=== PATIENT | male | born 1970 | race Hispanic/Latino ===

== ENCOUNTER 2022-08-12 10:24 | Emergency (ER) | payer MEDICAID ==
[~2022-08-12] VITALS: Ht 167.6 cm; Wt 86.2 kg
[2022-08-12 11:10] VITALS: BP 134/84
[2022-08-12] MEDS ORDERED: IBUPROFEN 600 MG TABLET PO ONE (11:30)
[2022-08-12] MEDS ORDERED: IBUP-2070 PO (11:39)
[2022-08-12] MEDS ORDERED: MUPI22OI2 TP (11:39)
== END 2022-08-12 12:07 | disposition home or self-care (01) ==
LOC: EDH 10:24
DX: L03.011 Cellulitis of right finger (principal)
CPT/HCPCS: 10160

== ENCOUNTER 2023-09-27 19:13 | Emergency (ER) | payer MEDICAID ==
[~2023-09-27] VITALS: Ht 167.6 cm; Wt 89.4 kg
[~2023-09-27 19:13] MED LIST changes: -BENZ-39 PO; -IBUP-2077 PO
[2023-09-27] MEDS ORDERED: 0.9%NACL 1000ML 1,000 ML IV ONE (19:30)
[2023-09-27] MEDS: ACETAMINOPHEN 500 MG TABLET PO ONE (19:30)
[2023-09-27 19:34] VITALS: BP 123/79; PULSE 108; RESP 20; O2SAT 97
[2023-09-27] MEDS ORDERED: IBUP-2077 PO (19:35)
[2023-09-27] MEDS ORDERED: BENZ-39 PO (19:35)
== END 2023-09-27 19:53 | disposition home or self-care (01) ==
LOC: EDH 19:13
DX: U07.1 COVID-19 (principal); R50.9 Fever, unspecified; R05.9 Cough, unspecified

== ENCOUNTER → 2023-09-27 | Emergency (ER) | payer MEDICAID ==
[~2023-09-27] VITALS: Ht 167.6 cm; Wt 86.6 kg
[~2023-09-27] MED LIST: BENZ-39 PO; CEPH500B PO; IBUP-2070 PO; IBUP-2077 PO; MUPI22OI2 TP
[2023-09-27 13:55] VITALS: BP 105/57; PULSE 93; RESP 20
[2023-09-27 14:51] LABS: RAPID GROUP A STREP negative (NEGATIVE)
[2023-09-27 14:59] LABS: SARS-CoV-2, RNA, NAAT POSITIVE SARS CoV-2 (NEGATIVE)
[2023-09-27 15:02] LABS: INFLUENZA TYPE A Negative For Type A (NEGATIVE); INFLUENZA TYPE B Negative For Type B (NEGATIVE)
== END ==
LOC: EDH 13:50
DX: U07.1 COVID-19 (principal); R50.9 Fever, unspecified; Z53.21 Procedure and treatment not carried out due to patient leaving prior to being seen by health care provider
CPT/HCPCS: 87635; 87804; 87880; 99281

== ENCOUNTER 2024-09-07 16:35 | Emergency (ER) | payer MEDICAID ==
[~2024-09-07] VITALS: Ht 167.6 cm; Wt 86.2 kg
[~2024-09-07 16:35] MED LIST changes: +BENZ-39 PO; +IBUP-2077 PO
--- NOTE | 2024-09-07 16:54 | ERN ---
ED Note History of Present Illness Stated Complaint: NAUSEA, VOMITING , DIARRHEA Chief Complaint: Nausea,Vomiting,Diarrhea Time Seen by MD: 16:41 Dictation: PATIENT IS A 53-YEAR-OLD MALE COMING IN VIA EMS WITH COMPLAINTS OF HAVING A PRODUCTIVE COUGH WITH CUSTOMER SUPPORT COORDINATOR PHLEGM FOR FIVE DAYS, NAUSEA VOMITING WITH DIARRHEA AND LOW-GRADE FEVER. HE SAID HE HAS NOT BEEN TO SEE HIS PRIMARY CARE DOCTOR HOWEVER HE HAD A APPOINTMENT WITH HIS DOCTOR FOR TOMORROW BUT DECIDED TO COME TO [facility] INSTEAD TO BE CHECKED OUT. Allergies: Coded Allergies: No Known Drug Allergies (Unverified Allergy, Unknown, 11/14/22) Home Meds Active Scripts Ibuprofen (Ibuprofen 800 mg Tab) 800 Mg Tab, 800 MG PO Q8H PRN for fever or pain, #30 TAB 0 Refills Prov:NANCY LOPEZ CINDER CREW WORKER 09/27/23 Benzonatate (Tessalon Perles) 100 Mg Cap, 100 MG PO TID for cough, #30 CAP 0 Refills Prov:NANCY LOPEZ CINDER CREW WORKER 09/27/23 Cephalexin Monohydrate (Keflex) 500 Mg Cap, 500 MG PO TID for 7 Days, #21 CAP Prov:MICHAEL SIEGEL MD 11/14/22 Ibuprofen (Ibuprofen) 600 Mg Tablet, 600 MG PO Q6H PRN for PAIN, #15 TAB Prov:TEZ WANGP 08/12/22 Mupirocin (Mupirocin Ointment) 22 Gm Oint, 22 GM TP BID, #1 TUBE Prov:TEZ WANGP 08/12/22 Past Medical History Past Medical History: No Pertinent History Surgical History: None Social History: Negative, Lives with family RN Note Reviewed/Agreed w/PFSH: Yes Review of System Dictation CONSTITUTIONAL: NEGATIVE EXCEPT FOR HPI HEAD/FACE: NEGATIVE EXCEPT FOR HPI EENT: NEGATIVE EXCEPT FOR HPI RESPIRATORY: NEGATIVE EXCEPT FOR HPI COUGH GASTROINTESTINAL/ABDOMINAL: NEGATIVE EXCEPT FOR HPI NAUSEA VOMITING WITH DIARRHEA GENITOURINARY: NEGATIVE EXCEPT FOR HPI MUSCULOSKELETAL: NEGATIVE EXCEPT FOR HPI INTEGUMENTARY: NEGATIVE EXCEPT FOR HPI NEUROLOGICAL/PSYCH: NEGATIVE EXCEPT FOR HPI HEMATOLOGIC/LYMPHATIC: NEGATIVE EXCEPT FOR HPI ALL SYSTEMS NEGATIVE, EXCEPT NOTED ABOVE. 13 POINT REVIEW OF SYSTEMS ASSESSED AND ALL NEGATIVE EXCEPT FOR ABOVE. Initial Vital Sign VS Vital Signs Date Time Temp Pulse Resp B/P (MAP) Pulse Ox O2 Delivery O2 Flow Rate FiO2 09/07/24 16:36 98.4 89 24 117/67 98 Room Air 0 09/07/24 17:06 21 Physical Exam Dictation VITAL SIGNS REVIEWED GENERAL APPEARANCE: ALERT, ORIENTED X 3, MILD ACUTE DISTRESS, WELL DEVELOPED, NOURISHED. HEAD AND FACE: NON-TRAUMATIC. EYES: PERRL, PINK CONJUNCTIVAS, EYELID NO TRAUMA, ANTERIOR CHAMBER WITH ARCUS SENILIS. EARS: PINNAS INTACT AND NO SIGNS OF TRAUMA OR ERYTHEMA EAR CANALS CLEAR AND NO DISCHARGE TM NO ERYTHEMA NOSE: NO DISCHARGE, NO BLEEDING. OROPHARYNX: MOUTH NORMAL, TONGUE PINK, PHARYNX CLEAR,NO ERYTHEMA, TONSILS NO EXUDATES, NO ABSCESSES NOTED, MUCOUS MEMBRANE MOIST NECK: SUPPLE, NON-TENDER, NO THYROMEGALY, NO MASSES, NO JVD, NO BRUITS BREAST:DEFERRED CHEST:NO TENDERNESS, NO CREPITUS, NO PARADOXICAL MOVEMENT, NO RETRACTIONS LUNGS:CLEAR, WELL-VENTILATED, SYMMETRIC, NO RALES, NO WHEEZING, NO RHONCHI, NO STRIDOR, GOOD BREATH SOUNDS BILATERALLY HEART: REGULAR RATE, REGULAR RHYTHM, NO MURMUR, NO GALLOPS VASCULAR: NO PERIPHERAL EDEMA, ABDOMEN: SOFT, POSITIVE BOWEL SOUNDS, NONDISTENDED, NO GUARDING, NONTENDER, NO REBOUND, NO MASSES NO HEPATOMEGALY, NO SPLENOMEGALY, NO HAHN'S SIGN, NO HERNIAS. NO FOCAL TENDERNESS RECTAL: DEFERRED GENITAL: DEFERRED NEUROLOGICAL: NORMAL SPEECH, MOTOR FUNCTION INTACT, SENSORY FUNCTION INTACT MUSCULOSKELETAL: NECK NONTENDER, FULL RANGE OF MOTION, BACK NONTENDER, FULL RANGE OF MOTION, EXTREMITIES: NONTENDER, FULL RANGE OF MOTION SKIN: COLOR PINK, DRY, NO TURGOR, NO RASH, NO LACERATIONS, NO ABRASIONS, NO CONTUSIONS. LYMPHATIC: DEFERRED Results (Laboratory/Radiology) Laboratory/Radiology Laboratory Tests Test 09/07/24 17:23 09/07/24 17:55 White Blood Count 6.0 K/uL (4.8-10.8) Red Blood Count 4.07 MIL/uL (4.50-6.20) L Hemoglobin 8.8 g/dL (14.0-18.0) L Hematocrit 30.3 % (42-54) L Mean Corpuscular Volume 74.4 fL (79-99) L Mean Corpuscular Hemoglobin 21.6 pg (27.0-33.0) L Mean Corpuscular Hemoglobin Concent 29.0 g/dL (32.0-36.0) L Red Cell Distribution Width 18.4 % (11.0-15.5) H Platelet Count 151 K/uL (130-400) Mean Platelet Volume 10.1 fL (7.5-10.5) Immature Granulocyte % (Auto) 0.3 % (0-1) Neutrophils (%) (Auto) 73.0 % (40.0-77.0) Lymphocytes (%) (Auto) 15.8 % (21.0-51.0) L Monocytes (%) (Auto) 10.6 % (3.0-13.0) Eosinophils (%) (Auto) 0.0 % (0.0-8.0) Basophils (%) (Auto) 0.3 % (0.0-5.0) Neutrophils # (Auto) 4.4 K/uL (1.8-7.7) Lymphocytes # (Auto) 1.0 K/uL (1.0-4.8) Monocytes # (Auto) 0.6 K/uL (0.1-1.0) Eosinophils # (Auto) 0.00 K/uL (0.00-0.70) Basophils # (Auto) 0.02 K/uL (0.00-0.20) Absolute Immature Granulocyte (auto 0.02 K/uL (0-1) Nucleated Red Blood Cells 0.0 % (0.0-0.19) Sodium Level 134 mmol/L (136-145) L Potassium Level 4.3 mmol/L (3.5-5.1) Chloride Level 100 mmol/L (101-111) L Carbon Dioxide Level 24 mmol/L (21-32) Blood Urea Nitrogen 21 mg/dL (7-18) H Creatinine 1.4 mg/dL (0.5-1.3) H Glomerular Filtration Rate Calc 60 mL/min (>90) Random Glucose 86 mg/dL (70-105) Lactic Acid Level 1.8 mmol/L (0.8-2.5) Total Calcium 8.1 mg/dL (8.5-10.1) L Urine Color YELLOW (YELLOW) Urine Appearance CLOUDY (CLEAR) H Urine pH 5.5 (5.0-8.0) Urine Specific [place] 1.028 (1.001-1.031) Urine Protein 50 mg/dL (NEGATIVE) H Urine Glucose (UA) 30 mg/dL (NEGATIVE) H Urine Ketones 20 mg/dL (NEGATIVE) H Urine Occult Blood +- (TRACE) (NEGATIVE) H Urine Nitrate NEGATIVE (NEGATIVE) Urine Bilirubin NEGATIVE mg/dL (NEGATIVE) Urine Urobilinogen 0.2 mg/dL (0.2-1.0) Urine Leukocyte Esterase NEGATIVE Riana/uL Urine RBC 2-5 /HPF (0-1) H Urine WBC 2-5 /HPF (0-1) H Urine Squamous Epithelial Cells RARE /HPF (0-2) Urine Bacteria None /HPF (None Seen) Urine Other Casts 4 /LPF (None Seen) SARS-CoV-2 Antigen (Rapid) PRESUMPTIVE NEGATIVE PORTABLE CHEST RADIOGRAPH INDICATION: PRODUCTIVE COUGH WITH GREEN PHLEGM COMPARISON: None FINDINGS: hall monitor leads overlie the field of view. Heart size is normal. The pulmonary vascularity and jero appear normal. No evidence for consolidation. Linear opacities at the left lung base. No significant pleural effusion noted. No pneumothorax detected. IMPRESSION: Minimal left lung base scarring and/or atelectasis without pneumonia. Labs Reviewed?: Yes ED Course ED Course Orders Procedure Category Date Status Time Covid19 (Sars Antigen LAB 09/07/24 Complete Rapid) 16:47 Cbc With Differential LAB 09/07/24 In Process 16:47 Blood Cult MARIANELA 09/07/24 In Process 16:47 Urinalysis Profile LAB 09/07/24 Complete 16:47 Lactic Acid LAB 09/07/24 Complete 16:47 Basic Metabolic Panel LAB 09/07/24 Complete 16:47 Chest 1vw RAD 09/07/24 Resulted 16:47 0.9%Nacl 1000ml (Ns PHA 09/07/24 Complete 1000ml) 17:00 Ondansetron 4mg Inj PHA 09/07/24 Complete (Zofran 4mg Inj) 17:00 Current Medications Medications (Trade) Dose Ordered Sig/Nishant Route PRN Reason Start Time Stop Time Status Last Admin Dose Admin Ondansetron HCl (zoFRAN 4MG INJ) 4 mg ONCE ONCE IVP 09/07/24 17:00 09/07/24 17:01 DC 09/07/24 16:59 Sodium Chloride 1,000 ml @ 0 mls/hr ONCE ONCE IV 09/07/24 17:00 09/07/24 17:01 DC 09/07/24 16:59 Vital Signs Date Time Temp Pulse Resp B/P (MAP) Pulse Ox O2 Delivery O2 Flow Rate FiO2 09/07/24 17:06 98.4 91 18 108/57 94 Room Air* 0 21 09/07/24 16:36 98.4 89 24 117/67 98 Room Air 0 1830/NO NAUSEA VOMITING AT THIS TIME. NO FEVER NO CHILLS AND HEMODYNAMICALLY STABLE. Medical Decision Making MDM MDM: DIFFERENTIAL DIAGNOSIS: PNEUMONIA/BRONCHITIS/ELECTROLYTE IMBALANCE/DEHYDRATION/GASTROENTERITIS/UTI RATIONALE: TESTS CONSIDERED AND ORDERED SECONDARY TO SHARED DECISION MAKING INCLUDE: RADIOLOGY/LABS PREVIOUS OUTSIDE RECORDS REVIEWED: OLD ER VISITS. RISK OF COMPLICATION AND/OR MORBIDITY OR MORTALITY OF PATIENT MANAGEMENT: NONE MEDICATIONS-PER MEDICATION RECONCILIATION NEED FOR HOSPITALIZATION: PATIENT DOES NOT MEET CRITERIA FOR HOSPITALIZATION. NO NEED FOR EMERGENCY MAJOR/MINOR SURGERY: NO THERE ARE NO SOCIAL CONCERNS WITH THIS PATIENT. PRESCRIPTION DRUG MANAGEMENT ZOFRAN/TESSALON PRESCRIPTIONS WILL INCLUDE SYMPTOMATIC CARE PATIENT'S PRIOR EXTERNAL MEDICAL RECORDS FROM OTHER ER VISITS WERE REVIEWED BY ME INDICATED. PRIOR TESTING AND RESULTS FROM PREVIOUS VISITS WERE REVIEWED. PRIOR TESTS WERE TAKEN INTO ACCOUNT WITH MEDICAL DECISION MAKING AND RESOURCE UTILIZATION, INDEPENDENT HISTORIAN/HISTORIANS WERE USED TO OBTAIN COMPLETE MEDICAL HISTORY. I INDEPENDENTLY INTERPRETED THE TEST THAT WERE PERFORMED, RESULTS WERE REVIEWED BY ME AND CONSIDERED FINDINGS ON RADIOLOGY IF ORDERED. MEDICAL MANAGEMENT AND EXAMINATION INTERPRETATION DISCUSSIONS WERE HAD BY ME WITH OTHER QUALIFIED HEALTHCARE PROFESSIONALS INDICATED FOR THE PATIENT'S CARE. DX & DISP Disposition: Discharge Departure Impression: Primary Impression: Viral URI with cough Additional Impressions: Mild dehydration, Nausea & vomiting Condition: Stable Scripts Ondansetron (Ondansetron Odt) 4 Mg Tab.rapdis 4 MG PO Q6HPRN PRN for nausea, #16 TAB 0 Refills Prov: NANCY LOPEZ CINDER CREW WORKER 09/07/24 Benzonatate (Tessalon Perles) 100 Mg Cap 100 MG PO TID for cough, #30 CAP 0 Refills Prov: NANCY LOPEZ CINDER CREW WORKER 09/07/24 Additional Instructions: Follow-up with primary care provider in 1 to 2 days. Take medications as directed here in the emergency room. Okay to continue home medications unless otherwise discussed during your visit in the emergency room today. Return to your nearest emergency room if symptoms worsen or if there is no improvement. Call 911 if you need immediate assistance. Take Tylenol or Motrin [id number] as needed and if no contraindications are present. Increase oral hydration. A wound culture or urine culture was ordered here in the emergency room department please follow-up with primary care provider and advise them to get repeat ports from our facility. If you had any Leobardo wrap/splints that were applied here, please do not remove them until you see your primary care or specialty. Increase water intake. , keep your appointment with your primary care doctor tomorrow without fail. Referrals: NONE (PCP) Time of Disposition: 18:30 I have reviewed the case, and I agree with, Diagnosis and Plan NANCY LOPEZ NP Sep 07, 2024 16:54
[2024-09-07] MEDS: 0.9%NACL 1000ML 1,000 ML IV ONE (16:59)
[2024-09-07] MEDS: ondanSETRON 4MG INJ IVP ONE (16:59)
--- NOTE | 2024-09-07 17:19 | HMCIMG ---
PORTABLE CHEST RADIOGRAPH INDICATION: PRODUCTIVE COUGH WITH GREEN PHLEGM COMPARISON: None FINDINGS: surveillance system monitor leads overlie the field of view. Heart size is normal. The pulmonary vascularity and jero appear normal. No evidence for consolidation. Linear opacities at the left lung base. No significant pleural effusion noted. No pneumothorax detected. IMPRESSION: Minimal left lung base scarring and/or atelectasis without pneumonia.
[2024-09-07 17:30] LABS: BASOPHILS # (AUTO) 0.02 K/uL (0.00-0.20); BASOPHILS % (AUTO) 0.3 % (0.0-5.0); HEMATOCRIT 30.3 % (42-54); IMMATURE GRANULOCYTE ABSOLUTE 0.02 K/uL (0-1); LYMPHOCYTES % (AUTO) 15.8 % (21.0-51.0); MEAN CORPUSCULAR HEMOGLOBIN 21.6 pg (27.0-33.0); MEAN CORPUSCULAR VOLUME 74.4 fL (79-99); MONOCYTES # (AUTO) 0.6 K/uL (0.1-1.0); MONOCYTES % (AUTO) 10.6 % (3.0-13.0); NEUTROPHILS # (AUTO) 4.4 K/uL (1.8-7.7); PLATELET COUNT (AUTO) 151 K/uL (130-400); RED BLOOD CELL COUNT(AUTO) 4.07 MIL/uL (4.50-6.20); RED CELL DISTRIBUTION WIDTH 18.4 % (11.0-15.5)
[2024-09-07 17:40] LABS: CREATININE 1.4 mg/dL (0.5-1.3); POTASSIUM 4.3 mmol/L (3.5-5.1)
[2024-09-07 18:07] LABS: APPEARANCE,URINE CLOUDY (CLEAR); BILIRUBIN,URINE NEGATIVE (NEGATIVE); COLOR,URINE YELLOW (YELLOW); GLUCOSE, URINE (UA) 30 mg/dL (NEGATIVE); KETONES,URINE 20 mg/dL (NEGATIVE); LEUKOCYTE ESTERASE ,URINE NEGATIVE Leu/uL (NEGATIVE); NITRATE,URINE NEGATIVE (NEGATIVE); PH,URINE 5.5 (5.0-8.0); PROTEIN,URINE 50 mg/dL (NEGATIVE); UROBILINOGEN,URINE 0.2 mg/dL (0.2-1.0)
[2024-09-07 18:13] LABS: ADD UA MICROSCOPIC YES
[2024-09-07 18:15] LABS: MUCUS,URINE MOD LPF (None Seen); OTHER CASTS, URINE 4 /LPF (None Seen); SQUAMOUS EPITHELIAL CELL,UR RARE /HPF (0-2)
[2024-09-07] MEDS ORDERED: ONDA-243 PO (18:31)
[2024-09-07 18:41] VITALS: BP 105/47; PULSE 85; RESP 18; TEMP 98.4; O2SAT 98
== END 2024-09-07 19:21 | disposition home or self-care (01) ==
LOC: EDH 16:35
DX: J06.9 Acute upper respiratory infection, unspecified (principal); B97.89 Other viral agents as the cause of diseases classified elsewhere; E86.0 Dehydration; R11.2 Nausea with vomiting, unspecified; Z79.899 Other long term (current) drug therapy; Z20.822 Contact with and (suspected) exposure to COVID-19
CPT/HCPCS: 99284; 96374; 71045; 96361; 87426; 80048; 85025; 87040 ×2; 83605; 81001; 36415; J7030; J2405

== ENCOUNTER 2024-12-06 07:29 | Inpatient (IN) | payer MEDICAID ==
[~2024-12-06] VITALS: Ht 167.6 cm; Wt 86.2 kg
[~2024-12-06 07:29] MED LIST changes: +ONDA-243 PO
[2024-12-06 08:30] LABS: BASOPHILS # (AUTO) 0.07 K/uL (0.00-0.20); BASOPHILS % (AUTO) 0.9 % (0.0-5.0); EOSINOPHILS # (AUTO) 0.08 K/uL (0.00-0.70); HEMATOCRIT 21.7 % (42-54); IMMATURE GRANULOCYTE ABSOLUTE 0.03 K/uL (0-1); LYMPHOCYTES # (AUTO) 1.4 K/uL (1.0-4.8); LYMPHOCYTES % (AUTO) 18.3 % (21.0-51.0); MEAN CORPUSCULAR HEMOGLOBIN 16.1 pg (27.0-33.0); MEAN CORPUSCULAR HGB CONC 25.3 g/dL (32.0-36.0); MEAN CORPUSCULAR VOLUME 63.6 fL (79-99); MONOCYTES # (AUTO) 0.7 K/uL (0.1-1.0); NEUTROPHILS # (AUTO) 5.5 K/uL (1.8-7.7); NEUTROPHILS % (AUTO) 70.4 % (40.0-77.0); NUCLEATED RED BLOOD CELLS 0.6 % (0.0-0.19); PLATELET COUNT (AUTO) 203 K/uL (130-400); RED BLOOD CELL COUNT(AUTO) 3.41 MIL/uL (4.50-6.20); RED CELL DISTRIBUTION WIDTH 19.1 % (11.0-15.5); WHITE BLOOD COUNT (AUTO) 7.8 K/uL (4.8-10.8)
--- NOTE | 2024-12-06 08:47 | HMCIMG ---
CHEST 1VW HISTORY: Generalized body weakness COMPARISON: 09/07/2024 FINDINGS: A frontal projection of the chest was obtained. No acute pulmonary infiltrates is seen. The heart is borderline enlarged. Degenerative changes are seen. Prominent interstitial markings are seen. No evidence of aortic calcification is seen. IMPRESSION: 1. No acute pulmonary infiltrate is seen.
[2024-12-06 08:48] LABS: CREATININE 1.3 mg/dL (0.5-1.3); POTASSIUM 4.3 mmol/L (3.5-5.1)
[2024-12-06 08:52] LABS: ALBUMIN 3.4 g/dL (3.5-5.0); BILIRUBIN,DIRECT 0.1 mg/dL (0.0-0.3); BILIRUBIN,TOTAL 0.4 mg/dL (0.2-1.0); TOTAL PROTEIN, SERUM 6.7 g/dL (6.0-8.3)
--- NOTE | 2024-12-06 09:26 | ERN ---
ED Note History of Present Illness Stated Complaint: ABN LABS, POSSIBLE ANEMIC Chief Complaint: Abnormal Labs Time Seen by MD: 07:38 Dictation: 54-year-old male presents to the ED for evaluation of abnormal labs that were drawn two days ago. Patient was told to come to the ER due to low hemoglobin stating his hemoglobin was at 5. Patient denies any associated symptoms at this time. Allergies: Coded Allergies: No Known Drug Allergies (Unverified Allergy, Unknown, 11/14/22) Home Meds Active Scripts Ondansetron (Ondansetron Odt) 4 Mg Tab.rapdis, 4 MG PO Q6HPRN PRN for nausea, #16 TAB 0 Refills Prov:NANCY LOPEZ NP 09/07/24 Benzonatate (Tessalon Perles) 100 Mg Cap, 100 MG PO TID for cough, #30 CAP 0 Ref ills Prov:NANCY LOPEZ WATERSHED ENGINEER 09/07/24 Ibuprofen (Ibuprofen 800 mg Tab) 800 Mg Tab, 800 MG PO Q8H PRN for fever or pain, #30 TAB 0 Refills Prov:NANCY LOPEZ NP 09/27/23 Benzonatate (Tessalon Perles) 100 Mg Cap, 100 MG PO TID for cough, #30 CAP 0 Refills Prov:NANCY LOPEZ NP 09/27/23 Cephalexin Monohydrate (Keflex) 500 Mg Cap, 500 MG PO TID for 7 Days, #21 CAP Prov:MICHAEL SIEGEL MD 11/14/22 Ibuprofen (Ibuprofen) 600 Mg Tablet, 600 MG PO Q6H PRN for PAIN, #15 TAB Prov:TEZ WANG 08/12/22 Mupirocin (Mupirocin Ointment) 22 Gm Oint, 22 GM TP BID, #1 TUBE Prov:TEZ WANG 08/12/22 Past Medical History Past Medical History: No Pertinent History Surgical History: None Social History: Negative, Lives with family Review of System Dictation Constitutional: Negative for fever,chills, and weight loss Eyes: Negative for injury, pain,redness, and discharge ENT: Negative for injury,pain or swelling Cardiovascular: Negative for chest pain, palpitations, and edema Respiratory: Negative for shortness of breath, cough, and wheezing, Abdomen/GI: Negative for abdominal pain, nausea, vomiting, diarrhea, and constipation Back: Negative for injury and pain : Negative for injury, bleeding and discharge MS/Extremity: Negative for injury and deformity Skin: Negative for rash, and discoloration Neuro: Negative for headache, weakness, numbness, tingling, and seizure Psych: Negative for suicide ideation, homicidal ideation, and hallucinations Initial Vital Sign VS Vital Signs Date Time Temp Pulse Resp B/P (MAP) Pulse Ox O2 Delivery O2 Flow Rate FiO2 12/06/24 07:31 98.2 88 16 102/58 100 Room Air 0 12/06/24 08:01 21 Physical Exam Dictation General: awake, alert, NAD Head/Face: Normocephalic, atraumatic Eyes: PERRL, EOMI, vision at baseline ENT: oral cavity clear, TMs clear, no signs of infection Neck: Trachea midline, supple, no nuchal rigidity Cardiovascular: RRR, normal S1/S2, No MRGs, no JVD Respiratory: CTAB, no respiratory distress, No rales or wheezes Abdomen: Soft, non-tender, non-distended, normal bowel sounds, no guarding or rebound. Skin: Warm, dry, normal turgor, pale MS/Extremity: Pulses equal, no cyanosis, neurovascular intact, FROM Neuro: COAx4, GCS 15, strength 5/5, CN 2-12 intact, normal cerebellar exam, normal gait, Psych: Normal behavior, mood, and affect normal Results (Laboratory/Radiology) Laboratory/Radiology Laboratory Tests Test 12/06/24 08:18 White Blood Count 7.8 K/uL (4.8-10.8) Red Blood Count 3.41 MIL/uL (4.50-6.20) L Hemoglobin 5.5 g/dL (14.0-18.0) *L Hematocrit 21.7 % (42-54) L Mean Corpuscular Volume 63.6 fL (79-99) L Mean Corpuscular Hemoglobin 16.1 pg (27.0-33.0) L Mean Corpuscular Hemoglobin Concent 25.3 g/dL (32.0-36.0) L Red Cell Distribution Width 19.1 % (11.0-15.5) H Platelet Count 203 K/uL (130-400) Mean Platelet Volume 9.7 fL (7.5-10.5) Immature Granulocyte % (Auto) 0.4 % (0-1) Neutrophils (%) (Auto) 70.4 % (40.0-77.0) Lymphocytes (%) (Auto) 18.3 % (21.0-51.0) L Monocytes (%) (Auto) 9.0 % (3.0-13.0) Eosinophils (%) (Auto) 1.0 % (0.0-8.0) Basophils (%) (Auto) 0.9 % (0.0-5.0) Neutrophils # (Auto) 5.5 K/uL (1.8-7.7) Lymphocytes # (Auto) 1.4 K/uL (1.0-4.8) Monocytes # (Auto) 0.7 K/uL (0.1-1.0) Eosinophils # (Auto) 0.08 K/uL (0.00-0.70) Basophils # (Auto) 0.07 K/uL (0.00-0.20) Absolute Immature Granulocyte (auto 0.03 K/uL (0-1) Nucleated Red Blood Cells 0.6 % (0.0-0.19) H Sodium Level 137 mmol/L (136-145) Potassium Level 4.3 mmol/L (3.5-5.1) Chloride Level 104 mmol/L (101-111) Carbon Dioxide Level 26 mmol/L (21-32) Blood Urea Nitrogen 14 mg/dL (7-18) Creatinine 1.3 mg/dL (0.5-1.3) Glomerular Filtration Rate Calc 65 mL/min (>90) Random Glucose 101 mg/dL (70-105) Total Calcium 8.3 mg/dL (8.5-10.1) L Total Bilirubin 0.4 mg/dL (0.2-1.0) Direct Bilirubin 0.1 mg/dL (0.0-0.3) Aspartate Amino Transf (AST/SGOT) 18 U/L (10-37) Alanine Aminotransferase (ALT/SGPT) 13 U/L (12-78) Alkaline Phosphatase 83 U/L (50-136) Troponin I High Sensitivity 6 ng/L (4-75) Total Protein 6.7 g/dL (6.0-8.3) Albumin 3.4 g/dL (3.5-5.0) L Labs Reviewed?: Yes X-RAY Comment: REASON: w ORDERING PHYSICIAN: STEVNE HICKS MD PROCEDURE: CXR1VW - CHEST 1VW CHEST 1VW HISTORY: Generalized body weakness COMPARISON: 09/07/2024 FINDINGS: A frontal projection of the chest was obtained. No acute pulmonary infiltrates is seen. The heart is borderline enlarged. Degenerative changes are seen. Prominent interstitial markings are seen. No evidence of aortic calcification is seen. IMPRESSION: 1. No acute pulmonary infiltrate is seen. DICTATED BY: Rajesh CHOI ED Course ED Course Orders Procedure Category Date Status Time 12 Lead Ekg Tracing- EKG 12/06/24 Logged Technical 07:45 Basic Metabolic Panel LAB 12/06/24 Complete 07:45 Cbc With Differential LAB 12/06/24 In Process 07:45 Hepatic Function Panel LAB 12/06/24 Complete 07:45 Troponin I High LAB 12/06/24 Complete Sensitivity 07:45 Chest 1vw RAD 12/06/24 Resulted 07:45 Type And Screen BBK 12/06/24 In Process 07:45 Rbc-No Active Bleeding BBK 12/06/24 In Process 09:14 Vital Signs Date Time Temp Pulse Resp B/P (MAP) Pulse Ox O2 Delivery O2 Flow Rate FiO2 12/06/24 09:00 82 16 111/63 99 Room Air* 0 12/06/24 08:01 78 16 140/62 100 Room Air* 0 12/06/24 07:31 98.2 88 16 102/58 100 Room Air 0 Medical Decision Making MDM MDM: Differential diagnosis: Severe anemia, microcytic anemia 0949- Hospitalist consult, accepts patient for admission Rationale: Tests considered and ordered secondary to shared decision making include: labs, ECG and radiology Risk of complication and/or morbidity or mortality of patient management: None Medications-Per medication reconciliation Need for hospitalization: Patient does meet criteria for hospitalization. Need for emergency major/minor surgery: No There are no social concerns with this patient. I independently interpreted the test that were performed, results were reviewed by me and considered findings on radiology if ordered. Medical management and examination interpretation discussions were had by me with other qualified healthcare professionals as indicated for the patient's care. Critical Care Note Critical Time: other (Total critical care time was 33 minutes. Excluding time for procedures. Management of critically ill patient with concern for acute decompensation. Management included interpretation of laboratory values and imaging, hemodynamics, time for consultation with consultants and admitting physician.) DX & DISP Disposition: Inpatient Decision to Admit Date: Dec 06, 2024 Decision to Admit Time: 09:49 Departure Impression: Primary Impression: Severe anemia Condition: Stable Referrals: JACK KAPLAN (PCP) STEVEN HICKS MD Dec 06, 2024 09:26
--- NOTE | 2024-12-06 12:02 | EKG ---
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
--- NOTE | 2024-12-06 13:55 | HP ---
[facility] HISTORY AND PHYSICAL Date of Service: Dec 06, 2024 Time of Service: 13:36 HISTORY OF PRESENT ILLNESS: 54-year-old male with past medical history of anemia, who presented to [facility] ED earlier today for concerns of abnormal labs. Patient states Friday of last week he went to go see his PCP, for routine checkup had labs drawn at that time. Patient states he was alerted by the clinic that he was found severely anemic, and was told to come to the hospital for further evaluation. Patient denied any significant symptoms ongoing in recent days. No chest pain, shortness of breath, fever, chills, nausea, vomiting, diarrhea, melena, hematochezia, dysuria or weakness. Patient does admit to having knowledge of anemia, for years ago had endoscopy, and colonoscopy performed, was told everything was normal. Patient was being followed in the outpatient setting by performance improvement analyst for ongoing management of anemia however has not been seen in several months, and is no longer on any treatment at this time. Patient does not take any other medications at home. Upon arrival to ED he was noted afebrile, blood pressure 102/58, heart rate 88, respirations 16, O2 saturation on% on room air. Further evaluation lab significant for hemoglobin of 5.5, hematocrit 21.7, with low MCV and low MCH. In the ED patient was typed and screen,1 unit PRBC ordered. Request then made to admit to the hospital for further evaluation and management. REVIEW OF SYSTEMS CONSTITUTIONAL: Denies fevers, chills, or night sweats. No unintentional weight loss reported. NEUROLOGICAL: Denies headache, amaurosis fugax, motor weakness, sensory deficit, vertigo/spinning sensation, gait abnormalities, or tremors. ENT: No hearing loss, otalgia, otorrhea, rhinitis, rhinorrhea, hoarseness, or sore throat. CARDIOVASCULAR: Denies any exertional angina, dyspnea on exertion, orthopnea, paroxysmal nocturnal dyspnea, palpitations, life-threatening arrhythmias, claudication. PULMONARY: Denies any shortness of breath, cough, phlegm/sputum, hemoptysis, pleuritic chest pain. SLEEP: Denies morning headaches, daytime somnolence or napping. Denies difficulty falling asleep, staying asleep, waking from sleep. Denies knowledge of snoring. GASTROINTESTINAL: Denies any type of dysphagia to either liquids or solids. Denies nausea, vomiting, pyrosis, early satiety, abdominal pain, diarrhea, constipation, or changes in stool consistency or caliber. Denies coffee-ground emesis, hematemesis, hematochezia, or melanotic stools. GENITOURINARY: Denies frequency, urgency, nocturia, hematuria or incontinence (Storage/Irritative symptoms.) Low urinary stream, straining to void, urinary intermittency or hesitancy, splitting of the voiding stream, terminal dribbling. ENDOCRINOLOGIC: Denies polyuria, polydipsia, polyphagia or heat/cold intolerances. HEMATOLOGIC: As mentioned in HPI ONCOLOGIC: Denies personal history of malignancy. DERMATOLOGIC: Denies rashes or pruritus. PSYCHIATRIC: Denies any suicidal or homicidal ideation. Denies hallucinations. PAST MEDICAL HISTORY: As mentioned in HPI PAST SURGICAL HISTORY: EGD Colonoscopy PAST SOCIAL HISTORY: No tobacco no alcohol no substance abuse. Lives at home alone. FAMILY HISTORY: Noncontributory Coded Allergies: No Known Drug Allergies (Unverified Allergy, Unknown, 11/14/22) PHYSICAL EXAM GENERAL APPEARANCE: The patient is awake, alert, and oriented, in no acute cardiopulmonary distress. NEUROLOGICAL: Cranial nerves II-XII grossly intact. Motor is 5/5 in bilateral upper and lower extremities proximal to distal. No sensory deficits. HEENT: Face is symmetric. Pupils are equal and reactive. Extraocular movements are intact. NECK: Supple. No JVD. No thyromegaly. No submental, submandibular, pre- /postauricular, occipital or supraclavicular lymphadenopathy. CHEST: Normal chest expansion. No Telemetry. LUNGS: Absence of any rales, rhonchi or any wheezing. CARDIOVASCULAR: Regular. S1 and S2 normal. No appreciable rubs, murmurs or gallops. ABDOMEN: Soft, nontender, and nondistended. There is no rebound, voluntary guarding, or rigidity. : Deferred. No Serrano. EXTREMITIES: Non-edematous and not cyanotic. No clubbing. Good capillary refill. SKIN: No skin breakdown. Pale Vital Sign (Last 24 Hours) 12/06/24 12:14 Temp 98.2 Pulse 82 Resp 16 B/P (MAP) 114/70 Pulse Ox 98 O2 Delivery Room Air* O2 Flow Rate 0 FiO2 21 LABS: Laboratory: Test 12/06/24 08:18 Range/Units White Blood Count 7.8 4.8-10.8 K/uL Red Blood Count 3.41 L 4.50-6.20 MIL/uL Hemoglobin 5.5 *L 14.0-18.0 g/dL Hematocrit 21.7 L 42-54 % Mean Corpuscular Volume 63.6 L 79-99 fL Mean Corpuscular Hemoglobin 16.1 L 27.0-33.0 pg Mean Corpuscular Hemoglobin Concent 25.3 L 32.0-36.0 g/dL Red Cell Distribution Width 19.1 H 11.0-15.5 % Platelet Count 203 130-400 K/uL Mean Platelet Volume 9.7 7.5-10.5 fL Immature Granulocyte % (Auto) 0.4 0-1 % Neutrophils (%) (Auto) 70.4 40.0-77.0 % Lymphocytes (%) (Auto) 18.3 L 21.0-51.0 % Monocytes (%) (Auto) 9.0 3.0-13.0 % Eosinophils (%) (Auto) 1.0 0.0-8.0 % Basophils (%) (Auto) 0.9 0.0-5.0 % Neutrophils # (Auto) 5.5 1.8-7.7 K/uL Lymphocytes # (Auto) 1.4 1.0-4.8 K/uL Monocytes # (Auto) 0.7 0.1-1.0 K/uL Eosinophils # (Auto) 0.08 0.00-0.70 K/uL Basophils # (Auto) 0.07 0.00-0.20 K/uL Absolute Immature Granulocyte (auto 0.03 0-1 K/uL Nucleated Red Blood Cells 0.6 H 0.0-0.19 % Red Blood Cell Morphology See comments Sodium Level 137 136-145 mmol/L Potassium Level 4.3 3.5-5.1 mmol/L Chloride Level 104 101-111 mmol/L Carbon Dioxide Level 26 21-32 mmol/L Blood Urea Nitrogen 14 7-18 mg/dL Creatinine 1.3 0.5-1.3 mg/dL Glomerular Filtration Rate Calc 65 >90 mL/min Random Glucose 101 70-105 mg/dL Total Calcium 8.3 L 8.5-10.1 mg/dL Total Bilirubin 0.4 0.2-1.0 mg/dL Direct Bilirubin 0.1 0.0-0.3 mg/dL Aspartate Amino Transf (AST/SGOT) 18 10-37 U/L Alanine Aminotransferase (ALT/SGPT) 13 12-78 U/L Alkaline Phosphatase 83 50-136 U/L Troponin I High Sensitivity 6 4-75 ng/L Total Protein 6.7 6.0-8.3 g/dL Albumin 3.4 L 3.5-5.0 g/dL DIAGNOSTICS / RADIOLOGY: [ ] ASSESSMENT: Severe microcytic anemia POA Hypocalcemia POA Hypoalbuminemia POA PLAN: Admit patient to medical floor under hospitalist team Patient currently being typed and screen,1 unit PRBC has been ordered. Follow up H&H Obtain iron, ferritin, B12, folic acid Obtain stool occult blood x1 Start patient on Protonix 40 mg IV daily Okay to initiate regular diet. SCDs for DVT prophylaxis P.r.n. medications for fever, pain, nausea, constipation Follow-up a.m. labs Further orders per hospital course ADVANCED CARE PLANNING 1. Which of the following were discussed? Hospice Care - No Therapeutic options - Yes Advance Directives - Yes Other discussions - 2. Discussed with who? The patient 3. Voluntary nature of this service was explained to the patient? Yes 4. Amount of time spent - __ 20 minutes 5. Reviewed by Physician? (if this service was performed by NPP) Yes ANALI RAMOS Dec 06, 2024 13:55
[2024-12-06] MEDS ORDERED: acetaMINOPHEN 325 MG TAB PO PRN (14:00)
[2024-12-06] MEDS ORDERED: ondanSETRON 4MG INJ IVP PRN (14:00)
[2024-12-06 15:33] LABS: RETICULOCYTE % (AUTO) 0.69 % (0.42-2.23)
[2024-12-06 15:39] LABS: % IRON SATURATION 9.8 % (30-44)
--- NOTE | 2024-12-06 17:23 | NUR ---
CALLED TO GIVE REPORT TO SYLVESTER TORRES, PER NANETTE RN NURSE IS BUSY AND WILL CALL BACK TO EXT [phone]
[2024-12-06 18:05] VITALS: O2SAT 99
[2024-12-06 18:28] VITALS: BP 115/65; PULSE 65; RESP 16; TEMP 97.9
[2024-12-06 18:58] LABS: HEMATOCRIT 23.4 % (42-54)
[2024-12-06 19:05] VITALS: O2SAT 100
[2024-12-06 20:00] VITALS: BP 111/67; PULSE 74; RESP 17; TEMP 97.8
[2024-12-06 23:54] VITALS: BP 110/66; PULSE 72; RESP 18; TEMP 98.3
[2024-12-07 04:00] VITALS: BP 122/71; PULSE 64; RESP 18; TEMP 98.2
[2024-12-07 05:14] LABS: BASOPHILS % (AUTO) 1.3 % (0.0-5.0); EOSINOPHILS % (AUTO) 1.3 % (0.0-8.0); HEMATOCRIT 27.4 % (42-54); IMMATURE GRANULOCYTE ABSOLUTE 0.05 K/uL (0-1); LYMPHOCYTES # (AUTO) 1.8 K/uL (1.0-4.8); LYMPHOCYTES % (AUTO) 24.1 % (21.0-51.0); MEAN CORPUSCULAR HEMOGLOBIN 18.7 pg (27.0-33.0); MEAN CORPUSCULAR HGB CONC 28.1 g/dL (32.0-36.0); MEAN CORPUSCULAR VOLUME 66.7 fL (79-99); MONOCYTES # (AUTO) 0.7 K/uL (0.1-1.0); NEUTROPHILS # (AUTO) 4.7 K/uL (1.8-7.7); NEUTROPHILS % (AUTO) 63.6 % (40.0-77.0); NUCLEATED RED BLOOD CELLS 0.5 % (0.0-0.19); PLATELET COUNT (AUTO) 191 K/uL (130-400); RED BLOOD CELL COUNT(AUTO) 4.11 MIL/uL (4.50-6.20); RED CELL DISTRIBUTION WIDTH 21.8 % (11.0-15.5); WHITE BLOOD COUNT (AUTO) 7.4 K/uL (4.8-10.8)
[2024-12-07 05:24] LABS: CREATININE 0.8 mg/dL (0.5-1.3); POTASSIUM 4.3 mmol/L (3.5-5.1)
[2024-12-07 08:00] VITALS: O2SAT 95
[2024-12-07] MEDS: PANTOPrazole 40 MG/VIAL IVP SCH (08:30)
[2024-12-07 08:57] VITALS: BP 127/78; PULSE 98; TEMP 98
--- NOTE | 2024-12-07 10:08 | NUR ---
DCP: HOME Pt lives alone in an RV with 3 steps to enter home. Pt's son Adal (28) also [place] and both are on SSI. Discussed MPOA, pt states son unable to make decision for him(pt) and he is estranged from his daughter Rochelle Oliveros. Pt would be ok with his provider Alexa Roberts [phone] being MPOA, but he must talk to her and see if she will agree. She assists pt with ADLS, transportation, shopping, home management and meal prep. Pt has no DME or in home health services. PCP is Maldonado Pop, and uses [facility] for rx. Pt denies dc needs and will return home at dc. Addendum: 12/07/24 at 1019 by ELVIN TORRES Amended: Links added.
[2024-12-07 11:37] VITALS: BP 143/53; PULSE 76; RESP 16; TEMP 97.8
--- NOTE | 2024-12-07 14:30 | NUR ---
Patient asking about plan, reached out to Dee Dee MARTIN. While pending to hear back patient became upset, threatened to leave AMA. He said he did not want the person who rounded on him (Dee Dee MARTIN) to come back in the room, he would "push and kick" her if she came back in his room. Notifed meat supervisor Gage of threat and expression to leave ama. Soon after, cb from Dee Dee indicating GI consult indicated and ordered. Updated her about patient threats and to leave ama. Updated patient that GI would be consulted due anemia and positive occult stool. Patient said his bm did not have any blood, educated on test results. During that time, patient remained agitated and aggressive when speaking about FREIGHT RATE CLERK. Repeatedly stated she is making him "look like a fool" for waiting 2 hours for plan of care update. He stated he would report her license to the state and that he didn't ever want her in his room again, that he refuses treatment by her, and he demands a different doctor that is not a female. He stated he would stay at this time for further work up. Patient requesting to speak with meat supervisor. Callback to Dee Dee MARTIN to update patient's request for change in provider and his complaints. Bath Steward/Stewardess Gage notified of patient's request to file complaint.
--- NOTE | 2024-12-07 14:36 | PN ---
[facility] PROGRESS NOTE Date of Service: Dec 07, 2024 Time of Service: 14:29 SUBJECTIVE: [54-year-old male with past medical history of anemia presented to the emergency department with low H& H. Apparently patient has been having some weakness and lethargy at home. He went to his PCP for which they ordered labs. On admission, his H&H was 5.5/21.7. Patient received2 units of PRBC for which improved his H&H at 7.7-27.4. Patient also was noted positive with stool occult blood. Gastroenterology has been consulted.] REVIEW OF SYSTEMS CONSTITUTIONAL: Denies fevers, chills, or night sweats. No unintentional weight loss reported. NEUROLOGICAL: Denies headache, amaurosis fugax, motor weakness, sensory deficit, vertigo/spinning sensation, gait abnormalities, or tremors. ENT: No hearing loss, otalgia, otorrhea, rhinitis, rhinorrhea, hoarseness, or sore throat. CARDIOVASCULAR: Denies any exertional angina, dyspnea on exertion, orthopnea, paroxysmal nocturnal dyspnea, palpitations, life-threatening arrhythmias, claudication. PULMONARY: Denies any shortness of breath, cough, phlegm/sputum, hemoptysis, pleuritic chest pain. SLEEP: Denies morning headaches, daytime somnolence or napping. Denies difficulty falling asleep, staying asleep, waking from sleep. Denies knowledge of snoring. GASTROINTESTINAL: Denies any type of dysphagia to either liquids or solids. Denies nausea, vomiting, pyrosis, early satiety, abdominal pain, diarrhea, constipation, or changes in stool consistency or caliber. Denies coffee-ground emesis, hematemesis, hematochezia, or melanotic stools. GENITOURINARY: Denies frequency, urgency, nocturia, hematuria or incontinence (Storage/Irritative symptoms.) Low urinary stream, straining to void, urinary intermittency or hesitancy, splitting of the voiding stream, terminal dribbling. ENDOCRINOLOGIC: Denies polyuria, polydipsia, polyphagia or heat/cold intolerances. HEMATOLOGIC: As mentioned in HPI ONCOLOGIC: Denies personal history of malignancy. DERMATOLOGIC: Denies rashes or pruritus. PSYCHIATRIC: Denies any suicidal or homicidal ideation. Denies hallucinations. PHYSICAL EXAM GENERAL APPEARANCE: The patient is awake, alert, and oriented, in no acute cardiopulmonary distress. NEUROLOGICAL: Cranial nerves II-XII grossly intact. Motor is 5/5 in bilateral upper and lower extremities proximal to distal. No sensory deficits. HEENT: Face is symmetric. Pupils are equal and reactive. Extraocular movements are intact. NECK: Supple. No JVD. No thyromegaly. No submental, submandibular, pre- /postauricular, occipital or supraclavicular lymphadenopathy. CHEST: Normal chest expansion. No Telemetry. LUNGS: Absence of any rales, rhonchi or any wheezing. CARDIOVASCULAR: Regular. S1 and S2 normal. No appreciable rubs, murmurs or gallops. ABDOMEN: Soft, nontender, and nondistended. There is no rebound, voluntary guarding, or rigidity. : Deferred. No Serrano. EXTREMITIES: Non-edematous and not cyanotic. No clubbing. Good capillary refill. SKIN: No skin breakdown. Pale Vital Signs (last 8hr) Date Time Temp Pulse Resp B/P (MAP) Pulse Ox O2 Delivery O2 Flow Rate FiO2 12/07/24 11:37 97.9 76 16 143/53 98 12/07/24 08:57 98.1 98 127/78 12/07/24 08:00 95 Room Air* 0 21 LABS: Laboratory: Test 12/07/24 04:39 12/06/24 14:57 12/06/24 14:13 12/06/24 12:44 Range/Units White Blood Count 7.4 4.8-10.8 K/uL Red Blood Count 4.11 #L 4.50-6.20 MIL/uL Hemoglobin 7.7 #L 14.0-18.0 g/dL Hematocrit 27.4 L 42-54 % Mean Corpuscular Volume 66.7 L 79-99 fL Mean Corpuscular Hemoglobin 18.7 L 27.0-33.0 pg Mean Corpuscular Hemoglobin Concent 28.1 L 32.0-36.0 g/dL Red Cell Distribution Width 21.8 H 11.0-15.5 % Platelet Count 191 130-400 K/uL Mean Platelet Volume 10.1 7.5-10.5 fL Immature Granulocyte % (Auto) 0.7 0-1 % Neutrophils (%) (Auto) 63.6 40.0-77.0 % Lymphocytes (%) (Auto) 24.1 21.0-51.0 % Monocytes (%) (Auto) 9.0 3.0-13.0 % Eosinophils (%) (Auto) 1.3 0.0-8.0 % Basophils (%) (Auto) 1.3 0.0-5.0 % Neutrophils # (Auto) 4.7 1.8-7.7 K/uL Lymphocytes # (Auto) 1.8 1.0-4.8 K/uL Monocytes # (Auto) 0.7 0.1-1.0 K/uL Eosinophils # (Auto) 0.10 0.00-0.70 K/uL Basophils # (Auto) 0.10 0.00-0.20 K/uL Absolute Immature Granulocyte (auto 0.05 0-1 K/uL Nucleated Red Blood Cells 0.5 H 0.0-0.19 % Sodium Level 137 136-145 mmol/L Potassium Level 4.3 3.5-5.1 mmol/L Chloride Level 107 101-111 mmol/L Carbon Dioxide Level 21 21-32 mmol/L Blood Urea Nitrogen 11 7-18 mg/dL Creatinine 0.8 0.5-1.3 mg/dL Glomerular Filtration Rate Calc 105 >90 mL/min Random Glucose 84 70-105 mg/dL Total Calcium 8.4 L 8.5-10.1 mg/dL Reticulocyte Count (auto) 0.96060 0.42-2.23 % Immature Reticulocyte Fraction 15.50 H 0.18-0.48 % Iron Level 46 L 65-175 mcg/dL Total Iron Binding Capacity 466 H 250-450 mcg/dL Percent Iron Saturation 9.8 L 30-44 % Ferritin 5 L 30-400 ng/mL Vitamin B12 Level 274 193-986 pg/mL Stool Occult Blood POSITIVE H NEGATIVE Folic Acid (LAB) 5.40 2-20 ng/mL Test 12/06/24 08:18 Range/Units Red Blood Cell Morphology See comments Total Bilirubin 0.4 0.2-1.0 mg/dL Direct Bilirubin 0.1 0.0-0.3 mg/dL Aspartate Amino Transf (AST/SGOT) 18 10-37 U/L Alanine Aminotransferase (ALT/SGPT) 13 12-78 U/L Alkaline Phosphatase 83 50-136 U/L Troponin I High Sensitivity 6 4-75 ng/L Total Protein 6.7 6.0-8.3 g/dL Albumin 3.4 L 3.5-5.0 g/dL Current Medications Medications (Trade) Dose Ordered Sig/Nishant Route PRN Reason Start Time Stop Time Status Last Admin Dose Admin Acetaminophen (TYLenol 325MG TAB) 650 mg Q6H PRN PO MILD PAIN (1-3) 12/06/24 14:00 01/05/25 13:59 Ondansetron HCl (zoFRAN 4MG INJ) 4 mg Q8H PRN IVP NAUSEA/VOMITING 12/06/24 14:00 01/05/25 13:59 Pantoprazole Sodium (PROTonix 40MG INJ) 40 mg DAILY IVP 12/07/24 09:00 01/06/25 08:59 12/07/24 08:30 40 MG DIAGNOSTICS / RADIOLOGY: [ ] ASSESSMENT: Severe microcytic anemia POA Hypocalcemia POA Hypoalbuminemia POA FOBT, POA PLAN: Admit patient to medical floor under hospitalist team Status post type and screen and 2 units of PRBC, H&H 7.7/27.4 Due to positive occult blood and anemia, gastroenterology to be consulted Continue with CBC in a.m. Continue with Protonix 40 mg IV daily Okay to initiate regular diet. SCDs for DVT prophylaxis P.r.n. medications for fever, pain, nausea, constipation Follow-up a.m. labs Further orders per hospital course Case seen and examined in the room discussed plan with the patient all questions addressed. ATTESTATION BY PHYSICIAN I have seen and examined the patient. I reviewed the documentation, medical decision making, and treatment plan as noted by the mid-level provider above. I agree with the findings and plan of care. Dottie Roy MD, [facility] Dec 07, 2024 14:36
[2024-12-07] MEDS ORDERED: COMPOUND IV MISC 1 EACH IVSOLN MISC PRN (15:00)
[2024-12-07 16:42] VITALS: BP 131/75; PULSE 69; RESP 19; TEMP 98.1
--- NOTE | 2024-12-07 17:15 | NUR ---
During pt round pt stated he does "not care about assault charges" in regards to MIS DIRECTOR (Dee Dee) , he is on the phone with son deciding whether to leave ama
--- NOTE | 2024-12-07 17:52 | NUR ---
AMA Patient asking for nurse to removed IVs. Patient says he doesn't want to wait anymore, he's going to leave. Educated patient about GI consultation. He states he is going to go to their office instead, that he already made an appointment. Educated patient on risks of leaving. Educated to return to ER if needed. Patient signed AMA form. IVs removed. Patient left with all belongings.
[2024-12-07] MEDS ORDERED: IRON sUCROse COMPLEX 300 MG in 0.9% NACL 250ML 250 ML IV ONE (21:00)
== END 2024-12-07 17:56 | disposition left against medical advice (07) | DRG 663 ==
LOC: EDH 07:29 → EDHIP 07:30 → 4BH 18:05
PROVIDERS: ADMIT Internal Medicine; ATTEND Internal Medicine
PROC: 30233N1 Transfusion of Nonautologous Red Blood Cells into Peripheral Vein, Percutaneous Approach (ICD-10-PCS; principal; 2024-12-06)
DX: D50.9 Iron deficiency anemia, unspecified (principal); E83.51 Hypocalcemia; E88.09 Other disorders of plasma-protein metabolism, not elsewhere classified; Z79.899 Other long term (current) drug therapy
CPT/HCPCS: 36415; 36430; 71045; 80048; 80076; 82270; 82607; 82728; 82746; 84260; 84484; 85014; 85018; 85025; 86850; 86900; 86901; 86923; 93005; 99291; G0378; J1756; J2470; J7050; P9016

== ENCOUNTER 2025-01-18 09:27 | Day surgery (SDC) | payer MEDICAID ==
[~2025-01-18] VITALS: Ht 167.6 cm; Wt 81.6 kg
[2025-01-18] VITALS (11 sets, daily range): BP systolic 95–135; BP diastolic 57–87; PULSE 59–84; RESP 15–20; TEMP 97.5–97.6
[2025-01-18] MEDS: 0.9%NACL 1000ML 1,000 ML IV ONE (10:12)
[2025-01-18] MEDS ORDERED: proPOFol 10 MG/ML 20ML VIAL IV ONE ×2 (11:59)
== END 2025-01-18 13:30 | disposition home or self-care (01) ==
LOC: DAH 09:27 → ENDO 09:27
PROVIDERS: ATTEND Internal Medicine Gastroenterology
DX: D50.0 Iron deficiency anemia secondary to blood loss (chronic) (principal); K21.00 Gastro-esophageal reflux disease with esophagitis, without bleeding; K31.89 Other diseases of stomach and duodenum; K29.50 Unspecified chronic gastritis without bleeding; K64.9 Unspecified hemorrhoids; K44.9 Diaphragmatic hernia without obstruction or gangrene; B96.81 Helicobacter pylori [H. pylori] as the cause of diseases classified elsewhere; Z79.899 Other long term (current) drug therapy
CPT/HCPCS: 43239; J7030; J2704 ×2; A4215; A4223; A4222; A4221; A4663; A4606; J3490